=== PATIENT | male | born 1995 | race Caucasian/White ===

== ENCOUNTER 2024-02-03 08:14 | Outpatient (AMB) | payer OTHER, SELFPAY ==
--- NOTE | 2024-02-03 08:27 | AM.OFFWIN_ITS ---
Intake Vital Signs 02/03/24 08:36 Height 5 ft 8 in Weight 148 lb BMI 22.5 BP 128/78 Blood Pressure Location Rt brachial Position Sitting Pulse 81 Pulse Source Pulse Oximeter Temp 97.9 F Temp Source Oral Pulse Oximetry (%) 98 Oxygen Delivery Method Room Air Intake Visit Reasons: [employer] Right Thumb/Cut on a metal can Intake Note: pt is here for right thumb cut from a metal can, unsure when last tdap was Patient Tobacco Use Status: Never used Tobacco Allergies amoxicillin Allergy (Mild, Verified 02/03/24 08:37) Rash Do you need a note to return to daycare/school/sports/work: Yes HPI HPI Comments History of Present Illness Details 28 y/o male patient who presents to walk in clinic with c/o a small cut on right thumb. Reports was opening a Can of [place] last night when he cut his thumb. Reports some tenderness. Does not remember his last Tdap Dose. PFSH Social History Patient Tobacco Use Status: Never used Tobacco Review of Systems Const All systems reviewed & are unremarkable except as noted in HPI and below Physical Exam Vital Signs: Last Vital Signs Temp 97.9 F 02/03/24 08:36 Pulse 81 02/03/24 08:36 BP 128/78 02/03/24 08:36 Pulse Ox 98 02/03/24 08:36 Oxygen Delivery Method Room Air 02/03/24 08:36 BMI result Body Mass Index 22.5 Const General: comfortable and no acute distress Orientation/consciousness: patient oriented x3 Skin Trauma: laceration (Small superficial clean cut, some redness, mild bleeding) Neuro General: patient oriented x3, gait normal and moves all extremities Extrem Right upper extremity: Extremity exam: right hand Details: normal capillary refill, neurosensory exam normal, tenderness Location: of the thumb Location: on the palmar aspect and normal ROM of fingers Psych Speech and movement: Normal speech and movement present Assessment & Plan Assessment & Plan (1) Laceration of right thumb: Code(s): S61.011A - Laceration without foreign body of right thumb without damage to nail, initial encounter Qualifiers: Damage to nail status: without damage Encounter type: initial encounter Foreign body presence: without foreign body Qualified Code(s): S61.011A - Laceration without foreign body of right thumb without damage to nail, initial encounter Plan: -Ordered Tetanus Shot given today in Office - Cleaned wound with warm saline - Dressed wound with Dermabond glue and steri-strip - Advised Pt not to wet area in the next 24 hours. - Advised Acetaminophen for pain relief. Orders: Orders TDaP Immunization Today Z23 - Encounter for immunization Coding Level of Care Code Est Pt Level 3 (35837) Diagnoses Laceration of right thumb without foreign body without damage to nail, initial encounter S61.011A Damage to nail status: without damage Encounter type: initial encounter Foreign body presence: without foreign body Time Spent (min) 15
[2024-02-03 08:36] VITALS: BP 128/78; PULSE 81; TEMP 36.6; O2SAT 98; BMI 22.5
== END 2024-02-03 09:50 | disposition home or self-care (01) ==
PROVIDERS: Visit Provider Nurse Practitioner Family
DX: Z23 Encounter for immunization (principal); S61.011A Laceration without foreign body of right thumb without damage to nail, initial encounter
CPT/HCPCS: 90471; 90715; 99213